=== PATIENT | male | born 1960 | race Caucasian/White ===

== ENCOUNTER → 2016-03-13 | Outpatient (CLI) | payer BC ==
--- NOTE | 2016-03-13 18:50 | PN ---
DATE OF SERVICE: 03/13/2016 This patient is a 56-year-old gentleman who has been followed in the sleep center for treatment of obstructive sleep apnea/hypopnea syndrome. At present he is on treatment with CPAP at the pressure 15 cm of water. I checked his CPAP unit. Usage is 23 out of 30 nights for more than 4 hours, acceptable normal range compliance. His weight has slightly increased from 295 pounds during his previous visit to up to 300 pounds now. At present the pressure on his CPAP unit is 15 cm of water. He believes that he may have some episodes of snoring at this pressure and is asking for a slight increase in the pressure. MEDICATIONS: 1. Humalog. 2. Metformin. 3. Pravastatin. 4. Allopurinol. 5. Hydrochlorothiazide. 6. Vitamins. 7. Aspirin. During physical exam, the patient is in no distress. VITAL SIGNS: BP 148/76, HR 76, RR 16. Height 6 feet 3 inches. Weight 300. BMI 37.4. Neck 19 inches. Temperature 98.3. Oxygen saturation at room air 96%. HEENT: PERRLA, EOMI. LUNGS: Clear. HEART: S1, S2 regular. ABDOMEN: Obese, soft, nontender. EXTREMITIES: No edema. IMPRESSION: 1. Obstructive sleep apnea/hypopnea syndrome. Patient demonstrated good compliance, benefitting from treatment. 2. Obesity. Patient's weight has increased up to 300 pounds. 3. Low testosterone level. 4. Hyperlipidemia. 5. Diabetes mellitus. 6. History of kidney stones. PLAN: 1. I increased pressure in his CPAP unit to 16 cm of water. 2. Losing weight. 3. Sleep hygiene with regular time in bed for at least 8 hours. 4. No driving if feeling any sleepiness. 5. Prescription for all necessary CPAP supplies. Patient needs to replace his nasal pillow mask. It is too loose. Thank you very much for allowing me to participate in the management of your patient. Sincerely, Cain Sung MD, PhD, FAASM. Diplomat of [employer] [place], Sleep Medicine Board by [employer] [place], [place] [employer]
== END | disposition home or self-care (01) ==

== ENCOUNTER 2018-05-20 08:34 | Day surgery (SDC) | payer BC ==
[2018-05-17 14:53] VITALS: BMI 38.9
[~2018-05-20 08:34] MED LIST: LACTATED RINGERS 1,000 ML IV SCH
[2018-05-20 09:24] VITALS: RESP 16; TEMP 97.2
[2018-05-20] MEDS ORDERED: LIDOCAINE 1% 20 ML VIAL (10MG/ML) FOR IV START SQ ONE (09:24)
[2018-05-20 09:26] LABS: Glucose,Whole Blood 137 mg/dL (75-99)
[2018-05-20] MEDS ORDERED: PROPOFOL 10 MG/ML 20 ML VIAL IV ONE (09:32)
--- NOTE | 2018-05-20 10:05 | P.PCN ---
Date of Procedure: 05/20/18 Procedure(s) Performed: Procedure: Colonoscopy and polypectomy. Preoperative diagnosis: Screening for neoplasia, patient has history of polyps. Postoperative diagnosis: 1. Mild sigmoid diverticulosis with no evidence of acute diverticulitis or strictures. 2. Small polyp around the hepatic flexure snared but no large polyps or cancer. Preparation: HalfLytely prep. Sedation: Was provided by anesthesia. Brief clinical history: The patient is a 58-year-old male who is scheduled for this evaluation for screening for neoplasia because of history of polyps. His last exam was in April 2013. The patient has no abdominal complaints, leading or anemia. Procedure: With the patient on his left lateral decubitus position and after informed consent and adequate sedation, the perianal area was inspected and it did not show any fissures or fistulas. There were no masses felt on digital rectal examination. The Olympus CFH 190L video colonoscope was then inserted in the rectum in the usual fashion and advanced to the cecum. There was a small polyp around the hepatic flexure which I snared and retrieved by suction but there were no large polyps or cancer. The mucosa appeared healthy. Occasional small diverticular orifice was seen scattered in the sigmoid with no evidence of acute diverticulitis or strictures. I retroflexed the endoscope in the rectum before the endoscope was withdrawn. The patient tolerated the procedure well. Plan: The patient was reassured. Discussed dietary measures. He will follow up with you as planned and I recommended repeat exam in 5 years.
[2018-05-20 10:28] LABS: Glucose,Whole Blood 137 mg/dL (75-99)
[2018-05-20 11:16] VITALS: BP 118/60; PULSE 78
== END 2018-05-20 10:50 | disposition home or self-care (01) ==
LOC: ORWHC2ENDO 08:34
DX: Z12.11 Encounter for screening for malignant neoplasm of colon (principal); D12.3 Benign neoplasm of transverse colon; K57.30 Diverticulosis of large intestine without perforation or abscess without bleeding; E11.9 Type 2 diabetes mellitus without complications; E78.5 Hyperlipidemia, unspecified; Z87.442 Personal history of urinary calculi; E66.01 Morbid (severe) obesity due to excess calories; Z68.39 Body mass index [BMI] 39.0-39.9, adult; Z79.82 Long term (current) use of aspirin; Z79.4 Long term (current) use of insulin; Z79.899 Other long term (current) drug therapy
CPT/HCPCS: 88305; 45385; J2704

== ENCOUNTER 2018-06-11 01:59 | Inpatient (IN) | payer BC ==
[2018-06-11] MEDS ORDERED: ONDANSETRON 4 MG/2 ML VIAL IVP STA (02:25)
[2018-06-11] MEDS ORDERED: HYDROmorphone 1 MG/ML 1 ML SYRINGE IVP STA (02:25)
[2018-06-11 02:48] LABS: ALT 55 U/L (21-72); AST 41 U/L (17-59); Albumin 3.9 g/dL (3.5-5.0); Alkaline Phosphatase 65 U/L (38-126); Amylase 206 U/L (30-110); Anion Gap 11 mmol/L; Blood Urea Nitrogen 18 mg/dL (9-20); Calcium 9.7 mg/dL (8.4-10.2); Carbon Dioxide 19 mmol/L (22-30); Chloride 108 mmol/L (98-107); Glucose 179 mg/dL (74-99); Potassium 4.4 mmol/L (3.5-5.1); Sodium 138 mmol/L (137-145); Total Bilirubin 0.6 mg/dL (0.2-1.3); Total Protein 7.1 g/dL (6.3-8.2)
[2018-06-11 03:12] LABS: Basophils % (A) 1 %; Eosinophils # (A) 0.4 k/uL (0-0.7); Eosinophils % (A) 4 %; HCT 42.1 % (39.0-53.0); HGB 15.4 gm/dL (13.0-17.5); Hyperchromasia Marked; Lymphocytes # (A) 2.2 k/uL (1.0-4.8); Lymphocytes % (A) 26 %; MCH 30.3 pg (25.0-35.0); MCHC 36.6 g/dL (31.0-37.0); MCV 82.7 fL (80.0-100.0); Mean Platelet Volume 7.3; Monocytes # (A) 0.5 k/uL (0-1.0); Monocytes % (A) 6 %; Neutrophils # (A) 5.4 k/uL (1.3-7.7); Neutrophils % (A) 63 %; Platelet Count 204 k/uL (150-450); Poikilocytosis Slight; RBC 5.09 m/uL (4.30-5.90); RDW 14.4 % (11.5-15.5); WBC 8.6 k/uL (3.8-10.6)
[2018-06-11 03:19] LABS: Lipase 3664 U/L (23-300)
[2018-06-11] MEDS ORDERED: SODIUM CHLORIDE 0.9% 500 ML 500 ML IV ONE (03:43)
[2018-06-11] MEDS: SODIUM CHLORIDE 0.9% 1,000 ML IV SCH ×3 (03:51→23:39)
--- NOTE | 2018-06-11 04:05 | CT ---
EXAM: CT Abdomen and Pelvis With Intravenous Contrast CLINICAL HISTORY: abdominal pain TECHNIQUE: Axial computed tomography images of the abdomen and pelvis with intravenous contrast. CTDI is 44.4 MGy and DLP is 2256 mGy-cm. This CT exam was performed using one or more of the following dose reduction techniques: automated exposure control, adjustment of the mA and/or kV according to patient size, and/or use of iterative reconstruction technique. COMPARISON: No relevant prior studies available. FINDINGS: Lung bases: Unremarkable. No mass. No consolidation. ABDOMEN: Liver: Unremarkable. No mass. Gallbladder and bile ducts: Gallbladder surgically absent. No intrahepatic or extrahepatic ductal dilatation is noted. Pancreas: Hazy appearance to the fat around the pancreas in the root of the mesentery. Nonspecific finding. No mass. No ductal dilation. No peripancreatic fluid collections. No pancreatic edema. Spleen: Unremarkable. No splenomegaly. Adrenals: Unremarkable. No mass. Kidneys and ureters: Unremarkable. No solid mass. No hydronephrosis. Stomach and bowel: Unremarkable. No obstruction. No mucosal thickening. PELVIS: Appendix: The appendix is normal Bladder: Unremarkable. No mass. Reproductive: Unremarkable as visualized. ABDOMEN and PELVIS: Intraperitoneal space: Unremarkable. No free air. No significant fluid collection. Bones/joints: No acute fracture. No dislocation. Soft tissues: Unremarkable. Vasculature: Unremarkable. No abdominal aortic aneurysm. Lymph nodes: Unremarkable. No enlarged lymph nodes. IMPRESSION: Surgical absence of the gallbladder Hazy appearance of the mesentery with stranding in the peripancreatic fat and root of the mesentery. This is a nonspecific finding. No definite abnormality of the pancreas noted. No fluid collections are noted.
[2018-06-11] MEDS ORDERED: HYDROmorphone 1 MG/ML 1 ML SYRINGE IVP PRN (04:26)
[2018-06-11] MEDS ORDERED: NALOXONE 0.4 MG/ML 1 ML VIAL IV PRN (04:26)
[2018-06-11] MEDS ORDERED: ONDANSETRON 4 MG/2 ML VIAL IVP PRN (04:26)
--- NOTE | 2018-06-11 04:26 | ED ---
Abdominal Pain HPI - General Chief Complaint: Abdominal Pain Stated Complaint: Palpitations Time Seen by Provider: 06/11/18 02:15 Source: patient Mode of arrival: ambulatory Limitations: no limitations - History of Present Illness Initial Comments: 58-year-old male patient presents to the emergency department today for evaluation of upper abdominal pain 5 days. Patient states that he has had intermittent pain to the upper abdomen over the last 5 days. States that when he would wake in the morning the pain would be absent however whenever he starte d eating for the day the pain with return and last throughout the day. Patient states the pain worsened after EGD episode. States he has had some nausea but denies any vomiting. Denies any radiation of the pain to his back. States he did have shaking chills Thursday evening but denies any elevated temperature. Denies any history of similar type pain. States he did have cholecystectomy in the past. Denies any difficulty with bowel movements. Denies any hematuria, dysuria, urinary frequency, urinary urgency. Denies any use of alcohol or street drugs. Patient denies any recent rash, shortness breath, chest pain, back pain, numbness, tingling, dizziness, weakness, headache, visual changes, or any other complaints. - Related Data Home Medications Medication Instructions Recorded Confirmed Allopurinol [Zyloprim] 100 mg PO TUTHSA 05/17/18 05/20/18 Aspirin [Adult Low Dose Aspirin EC] 81 mg PO DAILY 05/17/18 05/20/18 Ergocalciferol (Vitamin D2) 50,000 unit PO SA 05/17/18 05/20/18 [Vitamin D2] Gabapentin [Neurontin] 100 mg PO HS 05/17/18 05/20/18 Hydrochlorothiazide [Hydrodiuril] 25 mg PO MOWEFR 05/17/18 05/20/18 INSULIN LISPRO (humaLOG) [humaLOG] 50 - 55 units SQ BID 05/17/18 05/20/18 Insulin Glargine,Hum.rec.anlog 90 units SQ HS 05/17/18 05/20/18 [Toujeo Solostar] Pravastatin Sodium [Pravachol] 10 mg PO DAILY 05/17/18 05/20/18 Allergies Allergy/AdvReac Type Severity Reaction Status Date / Time No Known Allergies Allergy Verified 06/11/18 02:09 Review of Systems ROS Statement: Those systems with pertinent positive or pertinent negative responses have been documented in the HPI. ROS Other: All systems not noted in ROS Statement are negative. Past Medical History Past Medical History: Diabetes Mellitus, Hyperlipidemia, Pneumonia, Renal Disease Additional Past Medical History / Comment(s): hx kidney stones, Hx PVC's History of Any Multi-Drug Resistant Organisms: None Reported Past Surgical History: Cholecystectomy, Orthopedic Surgery Additional Past Surgical History / Comment(s): rt knee ACL repair Past Anesthesia/Blood Transfusion Reactions: No Reported Reaction Past Psychological History: No Psychological Hx Reported Smoking Status: Never smoker Past Alcohol Use History: None Reported Past Drug Use History: None Reported - Past Family History Mother Family Medical History: Cancer, Coronary Artery Disease (CAD) Additional Family Medical History / Comment(s): breast cancer General Exam Limitations: no limitations General appearance: alert, in no apparent distress, other (Physical well- developed, well-nourished adult male patient in no acute distress. Vital signs upon presentation are temperature 99.0F, pulse 76, respirations 18, blood pressure 146/77, pulse ox 96% on room air.) Eye exam: Present: normal appearance, PERRL, EOMI. Absent: scleral icterus, conjunctival injection, periorbital swelling ENT exam: Present: normal exam, normal oropharynx, mucous membranes moist Respiratory exam: Present: normal lung sounds bilaterally. Absent: respiratory distress, wheezes, rales, rhonchi, stridor Cardiovascular Exam: Present: regular rate, normal rhythm, normal heart sounds. Absent: systolic murmur, diastolic murmur, rubs, gallop, clicks GI/Abdominal exam: Present: soft, tenderness (Generalized abdominal tenderness), guarding (Mild), normal bowel sounds. Absent: distended, rebound, rigid Neurological exam: Present: alert, oriented X3, CN II-XII intact Psychiatric exam: Present: normal affect, normal mood Skin exam: Present: warm, dry, intact, normal color. Absent: rash Course Vital Signs 06/11/18 02:06 Temperature 99 F Pulse Rate 76 Respiratory 18 Rate Blood Pressure 146/77 O2 Sat by Pulse 96 Oximetry Medical Decision Making - Medical Decision Making 58-year-old male patient presents to the emergency department today for evalu ation of abdominal pain 5 days. Physical examination did reveal generalized abdominal tenderness and guarding. Labs reviewed and did reveal elevated lipase at 3664. CT abdomen and pelvis was obtained and showed hazy appearance the fat surrounding the pancreas with no definite abnormality of the pancreas. No other abnormalities were noted. Patient was given IV fluids and pain medication in the emergency department. Did discuss findings and results with him, he will be admitted to the hospital for further evaluation and GI consult. We will continue IV fluids and manage pain. He agrees with this plan. - Lab Data Result diagrams: 06/11/18 02:26 06/11/18 02:26 Lab Results 06/11/18 06/11/18 06/11/18 Range/Units 02:26 02: 02:26 WBC 8.6 (3.8-10.6) k/uL RBC 5.09 (4.30-5.90) m/uL Hgb 15.4 (13.0-17.5) gm/dL Hct 42.1 (39.0-53.0) % MCV 82.7 (80.0-100.0) fL MCH 30.3 (25.0-35.0) pg MCHC 36.6 (31.0-37.0) g/dL RDW 14.4 (11.5-15.5) % Plt Count 204 (150-450) k/uL Neutrophils % 63 % Lymphocytes % 26 % Monocytes % 6 % Eosinophils % 4 % Basophils % 1 % Neutrophils # 5.4 (1.3-7.7) k/uL Lymphocytes # 2.2 (1.0-4.8) k/uL Monocytes # 0.5 (0-1.0) k/uL Eosinophils # 0.4 (0-0.7) k/uL Basophils # 0.0 (0-0.2) k/uL Hyperchromasia Marked Poikilocytosis Slight Sodium 138 (137-145) mmol/L Potassium 4.4 (3.5-5.1) mmol/L Chloride 108 H (98-107) mmol/L Carbon Dioxide 19 L (22-30) mmol/L Anion Gap 11 mmol/L BUN 18 (9-20) mg/dL Creatinine 0.91 (0.66-1.25) mg/dL Est GFR (CKD-EPI)AfAm >90 (>60 ml/min/1.73 sqM) Est GFR (CKD-EPI)NonAf >90 (>60 ml/min/1.73 sqM) Glucose 179 H (74-99) mg/dL Plasma Lactic Acid Tristin 1.1 (0.7-2.0) mmol/L Calcium 9.7 (8.4-10.2) mg/dL Total Bilirubin 0.6 (0.2-1.3) mg/dL AST 41 (17-59) U/L ALT 55 (21-72) U/L Alkaline Phosphatase 65 (38-126) U/L Total Protein 7.1 (6.3-8.2) g/dL Albumin 3.9 (3.5-5.0) g/dL Amylase 206 H (30-110) U/L Lipase 3664 H (23-300) U/L - Radiology Data Radiology results: report reviewed, image reviewed CT abdomen and pelvis with contrast was obtained. Impression by Dr. Irwin shows hazy appearance of the mesentery with stranding in the peripancreatic fat root of the mesentery. This is a nonspecific finding. No definite abnormality of the pancreas noted. No fluid collections are noted. Surgical absence of the gallbladder. Disposition Clinical Impression: Acute pancreatitis Disposition: ADMITTED IP TO THIS [facility] Condition: Serious Referrals: John Rivas DO [Primary Care Provider] - 1-2 days Decision to Admit Reason: Admit from EC Decision Date: 06/11/18 Decision Time: 04:26
[2018-06-11 07:05] LABS: Glucose,Whole Blood 185 mg/dL (75-99)
[2018-06-11] MEDS: INSULIN ASPART (NovoLOG) 100 UNIT/ML VIAL SQ SCH ×4 (08:44→21:58)
[2018-06-11 09:07] LABS: Appearance,Urine Clear (Clear); Bilirubin,Urine Negative (Negative); Blood,Urine Negative (Negative); Color,Urine Yellow; Glucose,Urine (UA) 2+ (Negative); Ketones,Urine Negative (Negative); Leukocyte Esterase,Urine Negative (Negative); Nitrite,Urine Negative (Negative); PH, Urine 5.5 (5.0-8.0); Protein,Urine Negative (Negative); Specific Gravity,Urine 1.038 (1.001-1.035); Urobilinogen,Urine <2.0 mg/dL (<2.0)
[2018-06-11 12:04] LABS: Glucose,Whole Blood 159 mg/dL (75-99)
[2018-06-11] MEDS ORDERED: GABAPENTIN 100 MG CAP PO PRN (15:23)
[2018-06-11] MEDS ORDERED: TEMAZEPAM 15 MG CAP PO PRN (15:24)
[2018-06-11] MEDS ORDERED: ALPRAZolam 0.25 MG TAB PO PRN (15:24)
[2018-06-11 17:43] LABS: Glucose,Whole Blood 133 mg/dL (75-99)
[2018-06-11 20:25] LABS: Glucose,Whole Blood 139 mg/dL (75-99)
--- NOTE | 2018-06-11 21:04 | HP ---
HISTORY AND PHYSICAL DATE OF SERVICE: 06/11/2018 CHIEF COMPLAINTS: Abdominal pain and palpitations. HISTORY OF PRESENT ILLNESS: This 58-year-old gentleman with a past medical history of cholelithiasis and cholecystitis, history of diabetes mellitus, hypertension, hyperlipidemia, history of pneumonia, history of renal disease, history of kidney stones, being followed by Dr. Rivas in the outpatient setting, was complaining of abdominal pain which was felt in the upper part of the abdomen for the last 5 days. The pain was intermittent. The patient was complaining of aggravation of the pain while eating, which has been throughout the day. The patient also had nausea. Patient came to [facility] and found to have features of acute pancreatitis. Amylase and lipase were elevated. Patient was admitted for further evaluation and treatment. A CT scan of the abdomen and pelvis showed hazy appearance of the mesentery with stranding of the peripancreatic fat. Otherwise, there is no history of any fever, rigors or chills; no history of headache, loss of consciousness, seizures. PAST MEDICAL HISTORY: 1. History of diabetes. 2. Hyperlipidemia. 3. History of pneumonia. 4. Renal disease. 5. Kidney stones. 6. History of cholecystectomy. HOME MEDICATIONS: 1. Pravachol 10 mg p.o. daily. 2. Multivitamins 1 p.o. daily. 3. Zestril 5 mg p.o. daily. 4. Toujeo 90 units subcutaneously at bedtime. 5. Humalog 50 to 55 units subcutaneously b.i.d. 6. HydroDIURIL 25 mg p.o. daily. 7. Neurontin 100 mg at bedtime p.r.n. 8. Vitamin D2 50,000 Thursday. 9. Zyloprim 100 mg p.o. daily. ALLERGIES: NONE. FAMILY HISTORY: History of asthma, CAD, breast cancer. SOCIAL HISTORY: No history of smoking. No history of alcohol intake. REVIEW OF SYSTEMS: ENT: No diminished hearing. No diminished vision. CARDIOVASCULAR SYSTEM: No angina, palpitations. RESPIRATORY SYSTEM: As mentioned earlier. GI: As mentioned earlier. : No dysuria or retention. NERVOUS SYSTEM: No numbness, weakness. ALLERGY/IMMUNOLOGY: No asthma, hayfever. MUSCULOSKELETAL: As mentioned earlier. HEMATOLOGY/ONCOLOGY: No history of anemia. ENDOCRINE: Diabetes mellitus. CONSTITUTIONAL: As mentioned earlier. DERMATOLOGY: Negative. RHEUMATOLOGY: Negative. PSYCHIATRY: As mentioned earlier. PHYSICAL EXAMINATION: Patient is alert, oriented x3. The pulse is 68, blood pressure 131/69, respiration 18, temperature 98.7, pulse ox 94% on room air. HEENT: Conjunctivae normal. NECK: No jugular venous distention. CARDIOVASCULAR SYSTEM: S1, S2 muffled. RESPIRATORY SYSTEM: Breath sounds diminished at the bases. No rhonchi. No crackles. ABDOMEN: Soft, obese. Mild diffuse tenderness present. No guarding. No rigidity. No mass palpable. No ascites. LEGS: No edema. No swelling. NERVOUS SYSTEM: Higher functions as mentioned earlier. Moves all 4 limbs. No focal motor or sensory deficit. LYMPHATICS: No lymph node palpable in neck, axillae or groin. SKIN: No ulcer, rash, bleeding. JOINTS: No active deforming arthropathy. LABS: CBC within normal limits. Sodium 138. Glucose 179. Amylase 206, lipase 364. ASSESSMENT: 1. Acute pancreatitis with severe acute abdominal pain. 2. History of cholecystitis and cholelithiasis. 3. Diabetes mellitus, type 2. 4. Hypertension. 5. History of pneumonia. 6. History of nephrolithiasis. 7. History of cholecystectomy. 8. History of orthopedic surgery. 9. Degenerative joint disease with right knee ACL repair. 10.FULL CODE. 11.Obesity with body mass index of 38.3. RECOMMENDATIONS AND DISCUSSION: In this 58-year-old gentleman who presented with multiple complex medical issues, we will monitor the patient closely, continue the current medications, continue with symptomatic treatment. We will keep the patient on n.p.o. diet. Gastroenterology consultation. Guarded prognosis because of the multiple complex medical issues. Further recommendations to follow. See orders for further details. Symptomatic treatment. Proton pump inhibitors. DVT prophylaxis. Further recommendations to follow. A copy of this dictation is being forwarded to Dr. Rivas, who is the primary physician. MMODL / IJN: [id number] /
[2018-06-11] MEDS: INSULIN DETEMIR (LEVEMIR) 100 UNIT/ML SYR SQ SCH (21:58)
[2018-06-11] MEDS: HEPARIN SODIUM,PORCINE 5,000 UNIT/ML 1 ML VIAL SQ SCH (21:58)
[2018-06-12 07:01] LABS: Glucose,Whole Blood 119 mg/dL (75-99)
[2018-06-12] MEDS: INSULIN ASPART (NovoLOG) 100 UNIT/ML VIAL SQ SCH ×4 (07:37→21:02)
[2018-06-12 07:45] LABS: Basophils # (A) 0.1 k/uL (0-0.2); Basophils % (A) 1 %; Eosinophils # (A) 0.2 k/uL (0-0.7); Eosinophils % (A) 3 %; HCT 43.6 % (39.0-53.0); HGB 15.6 gm/dL (13.0-17.5); Hyperchromasia Slight; Lymphocytes # (A) 1.9 k/uL (1.0-4.8); Lymphocytes % (A) 26 %; MCH 29.4 pg (25.0-35.0); MCHC 35.7 g/dL (31.0-37.0); MCV 82.4 fL (80.0-100.0); Monocytes # (A) 0.4 k/uL (0-1.0); Monocytes % (A) 5 %; Neutrophils # (A) 4.6 k/uL (1.3-7.7); Neutrophils % (A) 64 %; Platelet Count 176 k/uL (150-450); Poikilocytosis Slight; RDW 15.6 % (11.5-15.5); WBC 7.2 k/uL (3.8-10.6)
[2018-06-12] MEDS: PANTOPRAZOLE 40 MG/10 ML VIAL IVP SCH (07:49)
[2018-06-12] MEDS: ALLOPURINOL 100 MG TAB PO SCH (07:50)
[2018-06-12] MEDS: HEPARIN SODIUM,PORCINE 5,000 UNIT/ML 1 ML VIAL SQ SCH ×2 (07:50→21:03)
[2018-06-12] MEDS: SODIUM CHLORIDE 0.9% 1,000 ML IV SCH ×2 (07:50→12:29)
[2018-06-12] MEDS: LISINOPRIL 5 MG TAB PO SCH (07:50)
--- NOTE | 2018-06-12 07:52 | P.CONS ---
History of Present Illness - Reason for Consult Consult date: 06/11/18 pancreatitis Requesting physician: Avery Gunn - Chief Complaint Abdominal pain - History of Present Illness 58-year-old male patient with a medical history significant for diabetes mellitus, hyperlipidemia and kidney stones who presents to the hospital with complaints of abdominal pain. The patient reports abdominal pain for the 5 days prior to presentation. He reports that the pain wasn't worsen in the morning after eating and then persists during the day. The pain was described as sharp and constant in the mid abdomen. He reports nausea but no associated vomiting. He denies any prior episodes were similar to this in the past. He does have a history of cholecystectomy. He denies any excessive alcohol use or position change. He denies any sick contacts, or change in his medications. On presentation the patient was found to have a white blood cell count 8.6, hemoglobin 15.4, platelet count 204,000, amylase 206, lipase 3664, normal LFT's and a computed tomography scan significant for an absent gallbladder and findings of haziness around the mesentery and pancreatitis. Past Medical History Past Medical History: Diabetes Mellitus, Hyperlipidemia, Pneumonia, Renal Disease Additional Past Medical History / Comment(s): hx kidney stones, Hx PVC's hx dizziness intermittently at work History of Any Multi-Drug Resistant Organisms: None Reported Past Surgical History: Cholecystectomy, Orthopedic Surgery Additional Past Surgical History / Comment(s): rt knee ACL repair Past Anesthesia/Blood Transfusion Reactions: No Reported Reaction Past Psychological History: No Psychological Hx Reported Smoking Status: Never smoker Past Alcohol Use History: None Reported Past Drug Use History: None Reported - Past Family History Mother Family Medical History: Asthma, Cancer, Coronary Artery Disease (CAD) Additional Family Medical History / Comment(s): breast cancer Medications and Allergies Home Medications Medication Instructions Recorded Confirmed Type Allopurinol [Zyloprim] 100 mg PO DAILY 05/17/18 06/11/18 History Ergocalciferol (Vitamin D2) 50,000 unit PO SA 05/17/18 06/11/18 History [Vitamin D2] Gabapentin [Neurontin] 100 mg PO HS PRN 05/17/18 06/11/18 History Hydrochlorothiazide [Hydrodiuril] 25 mg PO DAILY 05/17/18 06/11/18 History INSULIN LISPRO (humaLOG) [humaLOG] 50 - 55 units SQ BID 05/17/18 06/11/18 History Insulin Glargine,Hum.rec.anlog 90 units SQ HS 05/17/18 06/11/18 History [Jennifer Fontaine] Pravastatin Sodium [Pravachol] 10 mg PO DAILY 05/17/18 06/11/18 History Lisinopril [Zestril] 5 mg PO DAILY 06/11/18 06/11/18 History Multivitamin,Therapeutic [Thera] 1 tab PO DAILY 06/11/18 06/11/18 History Allergies Allergy/AdvReac Type Severity Reaction Status Date / Time No Known Allergies Allergy Verified 06/11/18 08:09 Physical Exam Vitals: Vital Signs Temp Pulse Pulse Resp BP BP Pulse Ox 06/11/18 14:57 18 06/11/18 13:07 98.7 F 68 18 131/69 94 L 06/11/18 10:33 65 18 06/11/18 05:47 97.5 F L 74 18 173/81 93 L 06/11/18 05:28 88 16 136/88 96 06/11/18 05:18 98.7 F 65 18 95/49 95 06/11/18 02:06 99 F 76 18 146/77 96 Intake and Output 06/11/18 06/11/18 06/11/18 06:59 14:59 22:59 Other: Voiding Method Toilet # Voids 1 3 Weight 142.882 kg On physical examination, patient appears comfortable in no apparent distress. HEAD: Normocephalic, atraumatic. EYES: No scleral icterus. No conjunctival injection. MOUTH: No lesions, tongue midline. NECK: Trachea midline, no gross abnormalities. CHEST: Clear to auscultation with no wheezing or rhonchi appreciated. HEART: Regular rate and rhythm. ABDOMEN: Soft, obese. Bowel sounds are positive. No organomegaly. No guarding or rigidity. EXTREMITIES: No pedal edema. SKIN: No rashes, no jaundice. NEUROLOGIC: Alert and oriented x3. No focal deficits. Results CBC & Chem 7: 06/11/18 02:26 06/11/18 02:26 Labs: Abnormal Lab Results - Last 24 Hours (Table) 06/11/18 06/11/18 06/11/18 Range/Units 02:26 07:02 08:45 Chloride 108 H (98-107) mmol/L Carbon Dioxide 19 L (22-30) mmol/L Glucose 179 H (74-99) mg/dL POC Glucose (mg/dL) 185 H (75-99) mg/dL Amylase 206 H (30-110) U/L Lipase 3664 H (23-300) U/L Ur Specific Crosby 1.038 H (1.001-1.035) Urine Glucose (UA) 2+ H (Negative) 06/11/18 06/11/18 Range/Units 12:02 17:41 Chloride (98-107) mmol/L Carbon Dioxide (22-30) mmol/L Glucose (74-99) mg/dL POC Glucose (mg/dL) 159 H 133 H (75-99) mg/dL Amylase (30-110) U/L Lipase (23-300) U/L Ur Specific Crosby (1.001-1.035) Urine Glucose (UA) (Negative) Microbiology - Last 24 Hours (Table) 06/11/18 08:45 Urine Culture - Preliminary Urine,Voided CT scan - abdomen: report reviewed (computed tomography scan significant for an absent gallbladder and findings of haziness around the mesentery and pancreatitis.) Assessment and Plan (1) Acute pancreatitis Narrative/Plan: 58-year-old male presenting with complaints of abdominal pain and found to have associated elevation in his amylase and lipase consistent with acute uncomplicated pancreatitis. No prior episodes of pancreatitis, in a patient who is at his gallbladder surgically removed in the remote past and denies any chronic alcohol use or drinking. Unknown cause of pancreatitis, liver enzymes remained normal making choledocholithiasis less likely, patient is on thiazide d iuretic which has been linked pancreatitis. Current Visit: Yes Status: Acute Code(s): K85.90 - ACUTE PANCREATITIS WITHOUT NECROSIS OR INFECTION, UNSP SNOMED Code(s): 235475682 Plan: Supportive care Nothing by mouth, advance diet. Improved Continue IV fluid hydration Continue IV pain medications Encourage ambulation Computed tomography scan report reviewed Triglyceride level pending Consideration for discontinuing use of hydrochlorothiazide the setting of perry creatitis Thank you for allowing us to participate in the care of this patient we will continue to follow
[2018-06-12 08:03] LABS: ALT 54 U/L (21-72); AST 46 U/L (17-59); Alkaline Phosphatase 56 U/L (38-126); Amylase 144 U/L (30-110); Anion Gap 9 mmol/L; Blood Urea Nitrogen 14 mg/dL (9-20); Calcium 9.6 mg/dL (8.4-10.2); Carbon Dioxide 24 mmol/L (22-30); Chloride 104 mmol/L (98-107); Glucose 110 mg/dL (74-99); Potassium 4.9 mmol/L (3.5-5.1); Sodium 137 mmol/L (137-145); Total Bilirubin 1.1 mg/dL (0.2-1.3); Total Protein 7.1 g/dL (6.3-8.2)
[2018-06-12 08:13] LABS: Lipase 1997 U/L (23-300)
[2018-06-12 11:23] LABS: Glucose,Whole Blood 190 mg/dL (75-99)
[2018-06-12 17:42] LABS: Glucose,Whole Blood 159 mg/dL (75-99)
[2018-06-12 19:59] LABS: Glucose,Whole Blood 188 mg/dL (75-99)
[2018-06-12] MEDS: INSULIN DETEMIR (LEVEMIR) 100 UNIT/ML SYR SQ SCH (21:02)
--- NOTE | 2018-06-12 21:14 | PN ---
PROGRESS NOTE DATE OF SERVICE: 06/12/2018 This 58-year-old gentleman who was admitted with abdominal pain, palpitations, also had features of acute pancreatitis. Patient being closely monitored. No chest pain. No palpitations. No fever. The amylase and lipase improving at this time. Patient's diet has been advanced. Gastroenterology is following the patient closely. EKG showed no acute changes. EXAM: Alert and oriented x3. Pulse is 56, blood pressure 139/74, respiration 18, temperature 98.1, pulse ox 97 percent on room air. HEENT: Conjunctivae normal. NECK: No jugular venous distention. CARDIOVASCULAR: S1, S2 muffled. RESPIRATORY: Breath sounds diminished in the bases. No rhonchi. No crackles. Abdomen is soft, obese, nontender. No mass palpable. Legs are no edema. No swelling. CENTRAL NERVOUS SYSTEM: No focal deficits. LABS: WBC 7.1, hemoglobin 15.6. Glucose 110, and triglycerides 162. Amylase is 144, lipase is 1997. ASSESSMENT: 1. Acute severe pancreatitis with severe abdominal pain on conservative line of treatment. 2. History of cholecystitis and cholelithiasis. 3. Diabetes mellitus type 2. 4. Hypertension. 5. History of pneumonia. 6. Nephrolithiasis. 7. History of cholecystectomy. 8. History of orthopedic surgery. 9. History of degenerative joint disease. 10.Right knee ACL repair. 11.Obesity with body mass index of 38.6. 12.FULL CODE. RECOMMENDATIONS AND DISCUSSION: I recommend to continue current medications, management and symptomatic treatment. Advance diet. Repeat labs. Gastroenterology evaluation appreciated. The CT scan noted. Prognosis guarded because of multiple complex medical issues and further recommendations to follow. Hydrochlorothiazide is on hold. Prognosis guarded. Further recommendations to follow. MMODL / IJN: [id number] /
[2018-06-12 22:16] VITALS: RESP 16
[2018-06-13] MEDS: SODIUM CHLORIDE 0.9% 1,000 ML IV SCH ×3 (04:50→22:02)
[2018-06-13 07:01] LABS: Glucose,Whole Blood 91 mg/dL (75-99)
[2018-06-13] MEDS: INSULIN ASPART (NovoLOG) 100 UNIT/ML VIAL SQ SCH ×4 (07:29→21:39)
[2018-06-13] MEDS: LISINOPRIL 5 MG TAB PO SCH (07:30)
[2018-06-13] MEDS: ALLOPURINOL 100 MG TAB PO SCH (07:30)
[2018-06-13] MEDS: HEPARIN SODIUM,PORCINE 5,000 UNIT/ML 1 ML VIAL SQ SCH ×2 (07:30→21:39)
[2018-06-13] MEDS: PANTOPRAZOLE 40 MG/10 ML VIAL IVP SCH (07:30)
[2018-06-13 10:00] LABS: Basophils % (A) 1 %; Eosinophils # (A) 0.3 k/uL (0-0.7); Eosinophils % (A) 5 %; HCT 43.7 % (39.0-53.0); HGB 15.7 gm/dL (13.0-17.5); Hyperchromasia Moderate; Lymphocytes # (A) 1.6 k/uL (1.0-4.8); Lymphocytes % (A) 26 %; MCHC 35.9 g/dL (31.0-37.0); MCV 83.5 fL (80.0-100.0); Mean Platelet Volume 7.1; Monocytes # (A) 0.3 k/uL (0-1.0); Monocytes % (A) 5 %; Neutrophils # (A) 3.9 k/uL (1.3-7.7); Neutrophils % (A) 63 %; Platelet Count 221 k/uL (150-450); Poikilocytosis Slight; RBC 5.24 m/uL (4.30-5.90); RDW 13.9 % (11.5-15.5); WBC 6.2 k/uL (3.8-10.6)
--- NOTE | 2018-06-13 10:06 | P.CRDCN ---
History of Present Illness Consult date: 06/13/18 Consult reason: chest pain History of present illness: Patient is a 58-year-old male with past medical history of type 2 diabetes, hypertension, hyperlipidemia, renal disease, and recent onset palpitations, who presents to the hospital with abdominal pain, which radiated through his chest. His pain was intermittent and aggravated by eating. Patient also reports nausea. Amylase and lipase are elevated and is currently being treated for acut e pancreatitis. EKG shows sinus mechanism without ST or T-wave changes. He was recently evaluated in the office for new onset of palpitations. He is currently wearing an event monitor and is scheduled for a stress test and echocardiogram in the office. On examination he is sitting up comfortably in bed, eating his breakfast. He denies any chest discomfort, dyspnea with exertion, dizziness, or vertigo. He does continue to have palpitations, which she describes as a flip-flop in his chest. Occasionally these palpitations cause him to take a deep breath. Lung sounds are clear. No abnormal heart sounds. No elevated JVP or lower extremity swelling. PAST MEDICAL HISTORY: Cholecystitis, cholecystectomy, type 2 diabetes, hypertension, hyperlipidemia, renal disease, GERD, obesity REVIEW OF SYSTEMS: No fever or chills. No cough or expectoration. No diaphoresis. Patient denies headache, dizziness, blurred vision, double vision. Patient does have stomach discomfort to palpation. No nausea, vomiting. No hematochezia. No hematemesis. Denies any black stools or blood in his stools. Denies dysuria or hematuria. No muscle weakness or numbness. PHYSICAL EXAMINATION: This is a 58-year-old male in no apparent distress at the time of my examination. HEENT: Head is atraumatic, normocephalic. Pupils are equal, round. Sclerae anicteric. Conjunctivae are clear. Mucous membranes of the mouth are moist. Neck is supple. There is no jugular venous distention. No carotid bruit is heard. CHEST EXAMINATION: Lungs are clear to auscultation. No chest wall tenderness is noted on palpation or with deep breathing. HEART EXAMINATION: Heart regular rate and rhythm. S1, S2 heard. No murmurs, gallops or rub. ABDOMEN: Soft, nontender. Bowel sounds are heard. No organomegaly noted. EXTREMITIES: 2+ peripheral pulses with no evidence of peripheral edema and no calf tenderness noted. NEUROLOGIC EXAMINATION: Patient is awake, alert and oriented x3. LABORATORY DATA: WBC 7.2, hemoglobin of 15.6, sodium 137, potassium 4.9, BUN 14, creatinine 0.98, AST 46, ALP 54, triglycerides 162, amylase 144, and lipase 1997. FINAL ASSESSMENT AND PLAN: Chest discomfort, likely GI etiology, resolved Hypertension Hyperlipidemia Palpitations, PVCs noted on telemetry strip, currently wearing event monitor PLAN: We will check a fasting lipid profile and TSH level. Continue current cardiac regimen. Patient will follow-up in office to follow-up and to continue his cardiac testing. Thank you kindly for this consult. Past Medical History Past Medical History: Diabetes Mellitus, Hyperlipidemia, Pneumonia, Renal Disease Additional Past Medical History / Comment(s): hx kidney stones, Hx PVC's hx dizziness intermittently at work History of Any Multi-Drug Resistant Organisms: None Reported Past Surgical History: Cholecystectomy, Orthopedic Surgery Additional Past Surgical History / Comment(s): rt knee ACL repair Past Anesthesia/Blood Transfusion Reactions: No Reported Reaction Past Psychological History: No Psychological Hx Reported Smoking Status: Never smoker Past Alcohol Use History: None Reported Past Drug Use History: None Reported - Past Family History Mother Family Medical History: Asthma, Cancer, Coronary Artery Disease (CAD) Additional Family Medical History / Comment(s): breast cancer Medications and Allergies Home Medications Medication Instructions Recorded Confirmed Type Allopurinol [Zyloprim] 100 mg PO DAILY 05/17/18 06/11/18 History Ergocalciferol (Vitamin D2) 50,000 unit PO SA 05/17/18 06/11/18 History [Vitamin D2] Gabapentin [Neurontin] 100 mg PO HS PRN 05/17/18 06/11/18 History Hydrochlorothiazide [Hydrodiuril] 25 mg PO DAILY 05/17/18 06/11/18 History INSULIN LISPRO (humaLOG) [humaLOG] 50 - 55 units SQ BID 05/17/18 06/11/18 History Insulin Glargine,Hum.rec.anlog 90 units SQ HS 05/17/18 06/11/18 History [Toujeo Solostar] Pravastatin Sodium [Pravachol] 10 mg PO DAILY 05/17/18 06/11/18 History Lisinopril [Zestril] 5 mg PO DAILY 06/11/18 06/11/18 History Multivitamin,Therapeutic [Thera] 1 tab PO DAILY 06/11/18 06/11/18 History Allergies Allergy/AdvReac Type Severity Reaction Status Date / Time No Known Allergies Allergy Verified 06/11/18 08:09 Physical Exam Vitals: Vital Signs Temp Pulse Pulse Resp BP Pulse Ox 06/13/18 07:37 58 L 68 16 06/13/18 05:00 98.3 F 58 L 16 136/69 96 06/12/18 21:00 98.3 F 63 16 119/68 95 06/12/18 16:20 64 68 18 06/12/18 11:10 98.1 F 64 18 139/75 97 Intake and Output 06/12/18 06/13/18 06/13/18 22:59 06:59 14:59 Intake Total 590 590 Output Total 300 Balance 590 290 Intake: Oral 590 590 Output: Urine 300 Other: Voiding Method Toilet Toilet # Voids 2 Results 06/12/18 07:14 06/12/18 07:14 Lipids 06/12/18 Range/Units 07:14 Triglycerides 162 H (<150) mg/dL Current Medications Generic Name Dose Route Start Last Admin Trade Name Freq PRN Reason Stop Dose Admin Allopurinol 100 mg 06/12/18 09:00 06/13/18 07:30 Zyloprim PO 100 mg DAILY GAURI Administration Alprazolam 0.25 mg 06/11/18 15:24 Xanax PO TID PRN Anxiety Gabapentin 100 mg 06/11/18 15:23 Neurontin PO HS PRN Pain Heparin Sodium (Porcine) 5,000 unit 06/11/18 21:00 06/13/18 07:30 Heparin SQ 5,000 unit Q12HR GAURI Administration Hydromorphone HCl 1 mg 06/11/18 04:26 06/11/18 13:10 Dilaudid IVP 1 mg Q3HR PRN Administration Severe Pain Sodium Chloride 1,000 mls @ 100 mls/hr 06/11/18 03:45 06/13/18 04:50 Saline 0.9% IV 100 mls/hr .Q10H GAURI Administration Insulin Aspart 0 unit 06/11/18 07:30 06/13/18 07:29 Novolog SQ Not Given ACHS GAURI Protocol Insulin Detemir 90 unit 06/11/18 21:00 06/12/18 21:02 Levemir SQ 90 unit HS GAURI Administration Lisinopril 5 mg 06/12/18 09:00 06/13/18 07:30 Zestril PO 5 mg DAILY GAURI Administration Naloxone HCl 0.2 mg 06/11/18 04:26 Narcan IV Q2M PRN Opioid Reversal Ondansetron HCl 4 mg 06/11/18 04:26 06/11/18 16:56 Zofran IVP 4 mg Q8HR PRN Administration Nausea And Vomiting Pantoprazole Sodium 40 mg 06/12/18 09:00 06/13/18 07:30 Protonix IVP 40 mg DAILY GAURI Administration Temazepam 15 mg 06/11/18 15:24 Restoril PO HS PRN Insomnia Intake and Output 06/12/18 06/13/18 06/13/18 22:59 06:59 14:59 Intake Total 590 590 Output Total 300 Balance 590 290 Intake: Oral 590 590 Output: Urine 300 Other: Voiding Method Toilet Toilet # Voids 2 06/12/18 07:14 06/12/18 07:14
[2018-06-13 10:26] LABS: Calcium 9.5 mg/dL (8.4-10.2); Potassium 4.7 mmol/L (3.5-5.1); Total Bilirubin 0.8 mg/dL (0.2-1.3); Total Protein 7.2 g/dL (6.3-8.2)
[2018-06-13 11:11] LABS: Glucose,Whole Blood 203 mg/dL (75-99)
[2018-06-13 17:39] LABS: Glucose,Whole Blood 170 mg/dL (75-99)
--- NOTE | 2018-06-13 20:02 | PN ---
PROGRESS NOTE DATE OF SERVICE: 06/13/2018 This 58-year-old gentleman who was admitted acute severe pancreatitis with acute severe abdominal pain is improving significantly. No chest pain. No palpitations. No fever. Amylase, lipase are still elevated. Cardiology has also seen the patient for chest pain EXAM: Alert and oriented x3. Pulse 68, blood pressure 130/70, respiration 20, temperature 98.2, pulse ox 94% on room air. HEENT: Conjunctivae normal. NECK: No jugular venous distention. CARDIOVASCULAR: S1, S2 muffled. RESPIRATORY: Breath sounds diminished in the bases. No rhonchi, no crackles. ABDOMEN: Soft, nontender. No mass palpable. Obese. LEGS: No edema. NERVOUS SYSTEM: No focal deficits. LABS: CBC within normal limits. Sodium 139, potassium 4.7. Triglycerides 183, LDL is 114 and amylase 128. Lipase is 1841. TSH is 3.410. ASSESSMENT: 1. Acute severe pancreatitis with severe abdominal pain on conservative line of treatment. 2. History of cholecystitis and cholelithiasis. 3. Diabetes type 2. 4. Chest pain for evaluation. 5. Hypertension. 6. History of pneumonia. 7. History of nephrolithiasis. 8. History of cholecystectomy. 9. History of orthopedic surgery. 10.History of degenerative joint disease. 11.Right knee ACL repair history. 12.Obesity with body mass of 38.6. 13.FULL CODE. RECOMMENDATIONS AND DISCUSSION: I recommend to continue current management, continue monitoring and symptomatic treatment. Repeat labs. Otherwise advanced diet. Guarded prognosis. Further recommendations to follow. MMODL / IJN: [id number] /
[2018-06-13 20:03] LABS: Glucose,Whole Blood 216 mg/dL (75-99)
[2018-06-13] MEDS: INSULIN DETEMIR (LEVEMIR) 100 UNIT/ML SYR SQ SCH (21:39)
[2018-06-14 07:03] LABS: Glucose,Whole Blood 110 mg/dL (75-99)
[2018-06-14] MEDS: INSULIN ASPART (NovoLOG) 100 UNIT/ML VIAL SQ SCH ×2 (08:21→12:45)
[2018-06-14 08:24] LABS: Basophils % (A) 1 %; Eosinophils # (A) 0.3 k/uL (0-0.7); Eosinophils % (A) 5 %; HCT 44.8 % (39.0-53.0); Hyperchromasia Moderate; Lymphocytes # (A) 1.8 k/uL (1.0-4.8); Lymphocytes % (A) 29 %; MCH 29.7 pg (25.0-35.0); MCHC 35.7 g/dL (31.0-37.0); MCV 83.2 fL (80.0-100.0); Monocytes # (A) 0.4 k/uL (0-1.0); Monocytes % (A) 6 %; Neutrophils # (A) 3.6 k/uL (1.3-7.7); Neutrophils % (A) 59 %; Platelet Count 214 k/uL (150-450); Poikilocytosis Slight; RBC 5.39 m/uL (4.30-5.90); RDW 13.7 % (11.5-15.5); WBC 6.1 k/uL (3.8-10.6)
[2018-06-14 08:29] LABS: ALT 83 U/L (21-72); AST 73 U/L (17-59); Alkaline Phosphatase 69 U/L (38-126); Amylase 107 U/L (30-110); Anion Gap 9 mmol/L; Blood Urea Nitrogen 14 mg/dL (9-20); Calcium 9.4 mg/dL (8.4-10.2); Carbon Dioxide 22 mmol/L (22-30); Chloride 107 mmol/L (98-107); Glucose 101 mg/dL (74-99); Lipase 1487 U/L (23-300); Potassium 4.3 mmol/L (3.5-5.1); Sodium 138 mmol/L (137-145); Total Bilirubin 0.9 mg/dL (0.2-1.3); Total Protein 7.3 g/dL (6.3-8.2)
[2018-06-14] MEDS: HEPARIN SODIUM,PORCINE 5,000 UNIT/ML 1 ML VIAL SQ SCH (09:26)
[2018-06-14] MEDS: PANTOPRAZOLE 40 MG/10 ML VIAL IVP SCH (09:26)
[2018-06-14] MEDS: ALLOPURINOL 100 MG TAB PO SCH (09:26)
[2018-06-14] MEDS: LISINOPRIL 5 MG TAB PO SCH (09:26)
[2018-06-14 11:15] LABS: Glucose,Whole Blood 128 mg/dL (75-99)
[2018-06-14 11:17] VITALS: BMI 38.3
[2018-06-14 11:47] VITALS: BP 125/70; PULSE 61; TEMP 98.2
== END 2018-06-14 14:15 | disposition home or self-care (01) | DRG 440 ==
LOC: EC 01:59 → 4MS4W 04:42 → UNDOADMIN 04:42 → 3NMEDONC 16:38 → 4MS4W 16:38 → 3NMEDONC 06-12 07:53 → 4MS4W 06-12 07:53
PROVIDERS: ADMIT Hospitalist; ATTEND Hospitalist
DX: K85.90 Acute pancreatitis without necrosis or infection, unspecified (principal); M17.11 Unilateral primary osteoarthritis, right knee; E11.9 Type 2 diabetes mellitus without complications; E66.9 Obesity, unspecified; E78.5 Hyperlipidemia, unspecified; I10 Essential (primary) hypertension; Z87.01 Personal history of pneumonia (recurrent); K21.9 Gastro-esophageal reflux disease without esophagitis; Z87.442 Personal history of urinary calculi; Z68.38 Body mass index [BMI] 38.0-38.9, adult; Z79.4 Long term (current) use of insulin; Z79.82 Long term (current) use of aspirin; Z79.899 Other long term (current) drug therapy; Z80.3 Family history of malignant neoplasm of breast; Z82.49 Family history of ischemic heart disease and other diseases of the circulatory system; Z82.5 Family history of asthma and other chronic lower respiratory diseases; Z90.49 Acquired absence of other specified parts of digestive tract; I49.3 Ventricular premature depolarization; R00.2 Palpitations; R07.9 Chest pain, unspecified; N28.9 Disorder of kidney and ureter, unspecified
CPT/HCPCS: 36415; 74177; 80053; 80061; 81003; 82150; 83605; 83690; 84443; 84478; 85025; 87086; 96361; 96374; 96375; 99285

== ENCOUNTER 2018-10-29 12:18 | Emergency (ER) | payer BC ==
[2018-10-29 12:38] VITALS: PULSE 53; TEMP 98.1
[2018-10-29 14:31] LABS: Basophils % (A) 1 %; Eosinophils # (A) 0.2 k/uL (0-0.7); Eosinophils % (A) 4 %; HCT 41.3 % (39.0-53.0); Lymphocytes # (A) 1.7 k/uL (1.0-4.8); Lymphocytes % (A) 29 %; MCH 29.8 pg (25.0-35.0); MCHC 33.9 g/dL (31.0-37.0); MCV 88.2 fL (80.0-100.0); Mean Platelet Volume 7.1; Monocytes # (A) 0.3 k/uL (0-1.0); Monocytes % (A) 4 %; Neutrophils # (A) 3.5 k/uL (1.3-7.7); Neutrophils % (A) 61 %; Platelet Count 162 k/uL (150-450); RBC 4.69 m/uL (4.30-5.90); RDW 13.4 % (11.5-15.5); WBC 5.8 k/uL (3.8-10.6)
[2018-10-29 14:44] LABS: Albumin 4.3 g/dL (3.5-5.0); Calcium 9.8 mg/dL (8.4-10.2); Potassium 4.7 mmol/L (3.5-5.1); Total Bilirubin 0.8 mg/dL (0.2-1.3); Total Protein 7.1 g/dL (6.3-8.2)
[2018-10-29 14:53] LABS: Appearance,Urine Clear (Clear); Bilirubin,Urine Negative (Negative); Blood,Urine Negative (Negative); Color,Urine Yellow; Glucose,Urine (UA) Negative (Negative); Ketones,Urine Negative (Negative); Leukocyte Esterase,Urine Negative (Negative); Nitrite,Urine Negative (Negative); Protein,Urine Negative (Negative); Specific Gravity,Urine 1.014 (1.001-1.035); Urobilinogen,Urine <2.0 mg/dL (<2.0)
--- NOTE | 2018-10-29 15:35 | CT ---
EXAMINATION TYPE: CT abdomen pelvis w con DATE OF EXAM: 10/29/2018 COMPARISON: 06/11/2018 HISTORY: Abdomen pain. Hx pancreatitis back in June. CT DLP: 1687 mGycm CONTRAST: CT scan of the abdomen and pelvis is performed without Oral Contrast and with IV Contrast, patient in jected with 100 mL of Isovue 300. FINDINGS: LUNG BASES-: No visible nodule. No infiltrate. LIVER/GB: Cholecystectomy clips are in place. No space occupying hepatic lesion. Biliary tree is o f normal caliber. PANCREAS: No inflammation. No distinct mass. SPLEEN: No splenic enlargement. No lesion seen. ADRENALS: No nodule. No thickening. KIDNEYS/BLADDER: No hydronephrosis. No nephrolithiasis. Renal cortical cysts noted. Urinary bladder grossly unremarkable. BOWEL: Normal appendix. Normal bowel caliber. No inflammation. GENITAL ORGANS: No gross abnormality. LYMPH NODES: No greater than 1cm abdominal or pelvic lymph nodes are appreciated. AORTA: No significant abnormality. OSSEOUS STRUCTURES: No significant abnormality is seen. OTHER: No significant additional abnormality is seen. IMPRESSION: 1. No acute process identified.
[2018-10-29 15:43] VITALS: BP 127/67; RESP 17
--- NOTE | 2018-10-29 16:34 | ED ---
Abdominal Pain HPI - General Chief Complaint: Abdominal Pain Stated Complaint: abd pain, abn labs Time Seen by Provider: 10/29/18 12:40 Source: patient Mode of arrival: ambulatory Limitations: no limitations - History of Present Illness Initial Comments: The patient is a 58-year-old male with past history of pancreatitis who presents to the emergency department with reported epigastric pain which has been occurring for the past week. He admits to associated nausea without vomiting. States that he has had a poor appetite since his episode of pancreatitis however did feel that it was improving and began advancing his diet. This only caused him to have more pain. He is denying any chest pain or shortness of breath. No ripping or tearing sensation to his back. He denies any diarrhea, constipation, melanotic stools or hematochezia. He denies any changes in his urination. No fevers or chills. He did go into his primary care office today who did perform a fecal occult test. It was negative. They then sent him into the emergency department for evaluation his lipase level and a CT of his abdomen and pelvis. There are no other alleviating, precipitating or modifying factors - Related Data Home Medications Medication Instructions Recorded Confirmed Multivitamin,Therapeutic [Thera] 1 tab PO DAILY 06/11/18 10/29/18 Albuterol Inhaler [Ventolin Hfa 1 - 2 puff INHALATION RT-Q6H PRN 10/29/18 10/29/18 Inhaler] Aspirin 81 mg PO DAILY 10/29/18 10/29/18 Ranitidine HCl 150 mg PO BID 10/29/18 10/29/18 Testosterone 30mg/Pump 30 mg TOPICAL Q48H 10/29/18 10/29/18 Allergies Allergy/AdvReac Type Severity Reaction Status Date / Time No Known Allergies Allergy Verified 10/29/18 14:19 Review of Systems ROS Statement: Those systems with pertinent positive or pertinent negative responses have been documented in the HPI. ROS Other: All systems not noted in ROS Statement are negative. Past Medical History Past Medical History: Diabetes Mellitus, Hyperlipidemia, Pneumonia, Renal Disease Additional Past Medical History / Comment(s): hx kidney stones, Hx PVC's hx dizziness, pamcreatitis History of Any Multi-Drug Resistant Organisms: None Reported Past Surgical History: Cholecystectomy, Orthopedic Surgery Additional Past Surgical History / Comment(s): rt knee ACL repair Past Anesthesia/Blood Transfusion Reactions: No Reported Reaction Past Psychological History: No Psychological Hx Reported Smoking Status: Never smoker Past Alcohol Use History: None Reported Past Drug Use History: None Reported - Past Family History Mother Family Medical History: Asthma, Cancer, Coronary Artery Disease (CAD) Additional Family Medical History / Comment(s): breast cancer General Exam Limitations: no limitations General appearance: alert, in no apparent distress Head exam: Present: atraumatic, normocephalic, normal inspection Eye exam: Present: normal appearance, PERRL, EOMI. Absent: scleral icterus, conjunctival injection, periorbital swelling ENT exam: Present: normal exam, mucous membranes moist Neck exam: Present: normal inspection. Absent: tenderness, meningismus, lymphadenopathy Respiratory exam: Present: normal lung sounds bilaterally. Absent: respiratory distress, wheezes, rales, rhonchi, stridor Cardiovascular Exam: Present: regular rate, normal rhythm, normal heart sounds. Absent: systolic murmur, diastolic murmur, rubs, gallop, clicks GI/Abdominal exam: Present: soft, tenderness (mild epigastric tenderness), normal bowel sounds. Absent: distended, guarding, rebound, rigid Extremities exam: Present: normal inspection, full ROM, normal capillary refill. Absent: tenderness, pedal edema, joint swelling, calf tenderness Back exam: Present: normal inspection Neurological exam: Present: alert, oriented X3, CN II-XII intact Psychiatric exam: Present: normal affect, normal mood Skin exam: Present: warm, dry, intact, normal color. Absent: rash Course Vital Signs 10/29/18 10/29/18 12:36 15:41 Temperature 98.1 F Pulse Rate 53 L 53 L Respiratory 18 17 Rate Blood Pressure 115/70 127/67 O2 Sat by Pulse 98 99 Oximetry Medical Decision Making - Medical Decision Making Upon arrival the patient is placed in room 27. He is hooked up to continuous pulse ox and cardiac monitoring. A 12-lead EKG is performed which demonstrates sinus bradycardia. Peripheral IV is established. I did offer the patient something for pain control and nausea however he refused stating that his symptoms are absent at this time. He is sent over for CT of his abdomen and pelvis. Upon return of the results they are discuss with the patient. His amylase is 59 and lipase is 114. His CT does not demonstrate any signs of acute pancreatitis at this time. The patient states that he is very relieved to hear this information. He is requesting hospital discharge at this time. He will be discharged home and is to follow up with his primary care physician within one to 2 days. He is to follow up with Dr. Ibarra at his regularly scheduled appointment. If he has any new or worsening symptoms, he should return to the emergency room. Patient was discharged home in stable condition - Differential Diagnosis acute epigastric abd pain, hx pancreatitis - Lab Data Result diagrams: 10/29/18 14:10 10/29/18 14:10 Lab Results 10/29/18 10/29/18 10/29/18 Range/Units 14:10 14:10 14:10 WBC 5.8 (3.8-10.6) k/uL RBC 4.69 (4.30-5.90) m/uL Hgb 14.0 (13.0-17.5) gm/dL Hct 41.3 (39.0-53.0) % MCV 88.2 (80.0-100.0) fL MCH 29.8 (25.0-35.0) pg MCHC 33.9 (31.0-37.0) g/dL RDW 13.4 (11.5-15.5) % Plt Count 162 (150-450) k/uL Neutrophils % 61 % Lymphocytes % 29 % Monocytes % 4 % Eosinophils % 4 % Basophils % 1 % Neutrophils # 3.5 (1.3-7.7) k/uL Lymphocytes # 1.7 (1.0-4.8) k/uL Monocytes # 0.3 (0-1.0) k/uL Eosinophils # 0.2 (0-0.7) k/uL Basophils # 0.0 (0-0.2) k/uL Sodium 141 (137-145) mmol/L Potassium 4.7 (3.5-5.1) mmol/L Chloride 105 (98-107) mmol/L Carbon Dioxide 27 (22-30) mmol/L Anion Gap 9 mmol/L BUN 15 (9-20) mg/dL Creatinine 1.10 (0.66-1.25) mg/dL Est GFR (CKD-EPI)AfAm 84 (>60 ml/min/1.73 sqM) Est GFR (CKD-EPI)NonAf 73 (>60 ml/min/1.73 sqM) Glucose 104 H (74-99) mg/dL Plasma Lactic Acid Tristin 0.7 (0.7-2.0) mmol/L Calcium 9.8 (8.4-10.2) mg/dL Total Bilirubin 0.8 (0.2-1.3) mg/dL AST 28 (17-59) U/L ALT 27 (21-72) U/L Alkaline Phosphatase 66 (38-126) U/L Total Protein 7.1 (6.3-8.2) g/dL Albumin 4.3 (3.5-5.0) g/dL Amylase 59 (30-110) U/L Lipase 114 (23-300) U/L Urine Color Urine Appearance (Clear) Urine pH (5.0-8.0) Ur Specific [place] (1.001-1.035) Urine Protein (Negative) Urine Glucose (UA) (Negative) Urine Ketones (Negative) Urine Blood (Negative) Urine Nitrite (Negative) Urine Bilirubin (Negative) Urine Urobilinogen (<2.0) mg/dL Ur Leukocyte Esterase (Negative) 10/29/18 Range/Units 14:40 WBC (3.8-10.6) k/uL RBC (4.30-5.90) m/uL Hgb (13.0-17.5) gm/dL Hct (39.0-53.0) % MCV (80.0-100.0) fL MCH (25.0-35.0) pg MCHC (31.0-37.0) g/dL RDW (11.5-15.5) % Plt Count (150-450) k/uL Neutrophils % % Lymphocytes % % Monocytes % % Eosinophils % % Basophils % % Neutrophils # (1.3-7.7) k/uL Lymphocytes # (1.0-4.8) k/uL Monocytes # (0-1.0) k/uL Eosinophils # (0-0.7) k/uL Basophils # (0-0.2) k/uL Sodium (137-145) mmol/L Potassium (3.5-5.1) mmol/L Chloride (98-107) mmol/L Carbon Dioxide (22-30) mmol/L Anion Gap mmol/L BUN (9-20) mg/dL Creatinine (0.66-1.25) mg/dL Est GFR (CKD-EPI)AfAm (>60 ml/min/1.73 sqM) Est GFR (CKD-EPI)NonAf (>60 ml/min/1.73 sqM) Glucose (74-99) mg/dL Plasma Lactic Acid Tristin (0.7-2.0) mmol/L Calcium (8.4-10.2) mg/dL Total Bilirubin (0.2-1.3) mg/dL AST (17-59) U/L ALT (21-72) U/L Alkaline Phosphatase (38-126) U/L Total Protein (6.3-8.2) g/dL Albumin (3.5-5.0) g/dL Amylase (30-110) U/L Lipase (23-300) U/L Urine Color Yellow Urine Appearance Clear (Clear) Urine pH 6.0 (5.0-8.0) Ur Specific [place] 1.014 (1.001-1.035) Urine Protein Negative (Negative) Urine Glucose (UA) Negative (Negative) Urine Ketones Negative (Negative) Urine Blood Negative (Negative) Urine Nitrite Negative (Negative) Urine Bilirubin Negative (Negative) Urine Urobilinogen <2.0 (<2.0) mg/dL Ur Leukocyte Esterase Negative (Negative) - EKG Data EKG Comments: EKG demonstrates sinus protocol he with a first-degree AV block. Ventricular rate of 46. ND interval 236. QRS 98. QTC of 395. There are no acute ST segment elevations or depressions for ischemic changes. No signs of high degree block. Disposition Clinical Impression: Abdominal pain Disposition: HOME SELF-CARE Condition: Stable Instructions (If sedation given, give patient instructions): Abdominal Pain (ED) Additional Instructions: Please follow-up with Dr. Ibarra in 2-4 days for reevaluation. Return to the emergency room for any new or worsening symptoms Is patient prescribed a controlled substance at d/c from ED?: No Referrals: John Rivas DO [Primary Care Provider] - 1-2 days Time of Disposition: 16:34
== END 2018-10-29 16:46 | disposition home or self-care (01) ==
LOC: EC 12:18
DX: R10.13 Epigastric pain (principal); R00.1 Bradycardia, unspecified; R11.0 Nausea; Z79.82 Long term (current) use of aspirin; Z79.890 Hormone replacement therapy; Z79.899 Other long term (current) drug therapy; Z87.19 Personal history of other diseases of the digestive system; Z90.49 Acquired absence of other specified parts of digestive tract; Z53.29 Procedure and treatment not carried out because of patient's decision for other reasons
CPT/HCPCS: 99284; 36415; 93005; 80053; 82150; 83605; 83690; 85025; 81003; 74177; Q9967